=== PATIENT | male | born 1990 | race African-American/Black ===

== ENCOUNTER 2021-08-10 16:13 | Emergency (ER) | payer MEDICAID, SELFPAY ==
[2021-08-10 16:14] VITALS: BP 143/92; PULSE 89; RESP 16; TEMP 36.1; O2SAT 100; BMI 20.1
--- NOTE | 2021-08-10 17:00 | EX.ED.DYSGE1 ---
HPI History of Present Illness Chief Complaint: Abscess Informant: patient Narrative Narrative: Wound right upper inner thigh noted yesterday. More tender today. Took couple baths shower to open up started draining. No fevers. No history of similar. Alcohol history denies any recreational drug use. Denies IV drug history. History of asthma. Denies any allergies. Prior similar symptoms: No PFSH PFSH Home Medications cephalexin 500 mg PO Q6 #40 cap 08/10/21 [Rx Last Taken Unknown] sulfamethoxazole-trimethoprim [Bactrim DS] 1 tab PO Q12H #20 tab 08/10/21 [Rx Last Taken Unknown] Allergy/AdvReac Type Severity Reaction Status Date / Time No Known Allergies Allergy Verified 08/10/21 16:14 Social History Smoking Status: Current every day smoker tobacco type: cigarettes ROS ROS ED Constitutional Constitutional ED: Denies chills, fever(s) or sweats Eyes Eyes: Denies change in vision ENT ENT ED: Denies dysphagia or sore throat Cardiovascular Cardiovascular: Denies chest pain, leg edema, palpitations or racing heartbeat Respiratory/Chest Respiratory/Chest: Denies cough, dyspnea or dyspnea on exertion Gastrointestinal Gastrointestinal: Denies abdominal pain, diarrhea, nausea or vomiting Genitourinary Genitourinary ED: Denies dysuria, hematuria or urinary frequency Musculoskeletal Musculoskeletal: Denies back pain, extremity pain or neck pain Integumentary Reports abscess; Denies rash or wounds Neurologic Neurologic: Denies headache(s), paresthesias or weakness EXAM Physical Exam Const Vital Signs: 08/10/21 16:14 Temperature 97.0 F L Temperature Source Temporal Pulse Rate 89 Respiratory Rate 16 Blood Pressure 143/92 H Blood Pressure Mean 109 Pulse Ox 100 Oxygen Delivery Method Room Air Positive well nourished and well developed General Appearance ED: well developed and NAD HEENT Reports moist mucous membranes normocephalic and atraumatic Eyes PERRL, EOMs intact bilaterally and conjunctivae normal General Eye ED: Yes normal appearance of both eyes Neck no lymphadenopathy and supple General: Negative for tenderness Chest Wall Chest: Negative for tenderness Resp normal respiratory effort and normal air movement Effort and Inspection: symmetric chest movement; Negative for respiratory distress Cardio regular rate, regular rhythm and no murmurs Peripheral Pulses: pulses 2+ throughout GI normal to inspection, nondistended, normoactive bowel sounds and non-tender Palpation: Negative for guarding or rebound tenderness present Back/Spine no CVA tenderness and no thoracic nor lumbar tenderness Extremity normal to inspection General Extremety ED: Negative for edema or tenderness General Extremity: Negative for edema Neuro oriented x3 and no sensory deficits noted Sensorium / Orientation: awake and alert Skin Skin Narrative: Right thigh: Upper medial thigh noted 4 cm x 2 cm induration fluctuance there was a head with some exudative drainage. Tender palpation. Darker skin pigmentation therefore difficult to evaluate for erythema. There is no induration into the scrotum or rectum. MDM MDM MDM Narrative Medical decision making narrative: Patient has an abscess right upper thigh starting to drain. However appears to have large fluctuance and much more to drain now I discussed with him for incision and drainage for definitive treatment. He agrees. Performed without difficulties, wound culture was sent. He started of Bactrim and Keflex. Follow-up was given. Tylenol Motrin as needed. Return precautions discussed. Procedure note: Verbal consent. Normal sterile conditions. Betadine prep of the skin, 5 cc 1% lidocaine without epinephrine was used for local analgesia. Betadine prepped again, 11 blade stab incision copious exudates, cultures collected. Additional extension of the wound with cruciate incisions, loculations broken with hemostats. Total of 250 cc normal saline for flushing. Dressing placed by nursing. Patient tolerate procedure well. Discharge Plan Triage Chief Complaint: Abscess ED Provider: Chris Schneider Dx/Rx/DC Orders Clinical Impression: Abscess of right thigh, Status post incision and drainage Instructions: ED Abscess Incision And Drainage Prescriptions: New sulfamethoxazole-trimethoprim [Bactrim DS] 800-160 mg tablet 1 tab PO Q12H Qty: 20 RF: 0 cephalexin [cephalexin] 500 MG capsule 500 mg PO Q6 Qty: 40 RF: 0 Primary Care Provider: NOT,DEFINED Referrals: Radha Jones [NON-STAFF] - 1 Week NOT,DEFINED [Primary Care Provider] - Activity Restrictions/Additional Instructions: Status post incision and drainage. Wound culture sent and pending. Take antibiotic as prescribed. Follow-up as an outpatient return if any worsening symptoms. Disposition Disposition: Home, Self Care
[2021-08-10] MEDS: Cephalexin 250 MG Capsule 500 MG PO (17:28)
[2021-08-10] MEDS: Smz/Tmp Ds Tablet 1 TABLET PO (17:28)
[2021-08-10 17:30] VITALS: BP 132/72; PULSE 83; RESP 16; O2SAT 98
== END 2021-08-10 17:33 | disposition home or self-care (01) ==
LOC: ED 17:32
PROVIDERS: Emergency Provider Emergency Medicine; Visit Provider Emergency Medicine
DX: L02.415 Cutaneous abscess of right lower limb (principal); F17.210 Nicotine dependence, cigarettes, uncomplicated
CPT/HCPCS: 10060; 87070; 87205; 99284

== ENCOUNTER 2021-09-09 12:20 | Emergency (ER) | payer MEDICAID, SELFPAY ==
[2021-09-09 12:21] VITALS: BP 128/74; PULSE 108; RESP 16; TEMP 36.7; O2SAT 98; BMI 19.3
--- NOTE | 2021-09-09 12:48 | EX.ED.DYSGE1 ---
HPI History of Present Illness Chief Complaint: Fever Informant: patient Narrative Narrative: 31-year-old male presenting to the emergency department for rectal pain. Patient states that since Thursday he has been experiencing rectal bleeding and significant pain. He feels like something is protruding from his anus. Family also notes that he seemed to have a fever over the past 4 days and body aches but that has resolved and he had been checked for COVID and flu were negative. Patient states the true reason for his visit is the rectal pain. He notes that he does strain frequently for bowel movements and is usually on the commode for an extended period of time PFSH PFS Home Medications cephalexin 500 mg PO Q6 #40 cap 08/10/21 [Rx Last Taken Unknown] sulfamethoxazole-trimethoprim [Bactrim DS] 1 tab PO Q12H #20 tab 08/10/21 [Rx Last Taken Unknown] docusate sodium [Colace] 100 mg PO BID #60 cap 09/09/21 [Rx Last Taken Unknown] hydrocortisone [Anusol-HC] 1 applic DC BID #30 g 09/09/21 [Rx Last Taken Unknown] lidocaine 1 applic TOPICAL BID PRN #30 g 09/09/21 [Rx Last Taken Unknown] Allergy/AdvReac Type Severity Reaction Status Date / Time No Known Allergies Allergy Verified 09/09/21 12:21 Social History Smoking Status: Current every day smoker tobacco type: cigarettes ROS ROS ED Constitutional Constitutional ED: Reports fever(s); Denies chills or weight loss Eyes Eyes: Denies change in vision or diplopia ENT ENT ED: Denies ear pain, rhinorrhea or sore throat Cardiovascular Cardiovascular: Denies chest pain, orthopnea, palpitations or racing heartbeat Respiratory/Chest Respiratory/Chest: Denies cough, dyspnea or orthopnea Gastrointestinal Gastrointestinal: Reports other Details: Rectal pain ; Denies abdominal pain, diarrhea, nausea or vomiting Genitourinary Genitourinary ED: Denies dysuria, hematuria or urinary frequency Musculoskeletal Musculoskeletal: Reports myalgias; Denies arthralgias Integumentary Denies abscess or rash Neurologic Neurologic: Denies headache(s) or weakness Psychiatric Psychiatric: Denies anxiety, depression, suicidal ideation or suicidal thoughts Endocrine Endocrinology: Denies polydipsia, polyphagia or polyuria Allergic/Immunologic Allergic/Immunologic ED: Denies mouth swelling, tongue swelling or urticaria EXAM Physical Exam Const Vital Signs: 09/09/21 12:21 09/09/21 12:37 Temperature 98.1 F Temperature Source Temporal Pulse Rate 108 H Respiratory Rate 16 Respiratory Effort Normal Non-Labored Blood Pressure 128/74 H Blood Pressure Mean 92 Pulse Ox 98 Oxygen Delivery Method Room Air Positive well nourished and well developed General Appearance ED: well developed HEENT Reports normocephalic, head/scalp atraumatic, TM's clear and moist mucous membranes Negative for trauma Tympanic Membrane ED: Yes TM's clear Eyes PERRL and EOMs intact bilaterally Neck no lymphadenopathy, supple and no JVD Resp normal respiratory effort and clear to auscultation bilaterally Cardio regular rate, regular rhythm and no murmurs GI normal to inspection, nondistended, normoactive bowel sounds and non-tender Palpation: soft Narrative: Rectal examination shows several inflamed external hemorrhoids. These are still pink and do not appear thrombosed. I do not see any rectal prolapse. Back/Spine no CVA tenderness and normal ROM Extremity normal to inspection General Extremety ED: Negative for edema General Extremity: Negative for edema Neuro oriented x3 and CN's II-XII intact bilaterally Sensorium / Orientation: alert Motor Exam: strength 5/5 throughout Psych mental status grossly normal Mood & Affect: Negative for depressed or tearful Skin no rashes or lesions noted and no wounds MDM MDM MDM Narrative Medical decision making narrative: Patient was started on twice daily stool softener. I will write for lidocaine jelly and Anusol HC. As these are nonthrombosed I do not think he needs incision and drainage today. I do think he would benefit from surgical consultation for possible definitive management of these hemorrhoids. Patient was advised not to take his phone or magazines into the bathroom with him. He was advised on sitz bath. Discharge Plan Triage Chief Complaint: Fever ED Provider: Tim Valdez Dx/Rx/DC Orders Clinical Impression: External hemorrhoid, bleeding, Pain, rectal Instructions: Understanding Hemorrhoids Prescriptions: New docusate sodium [Colace] 100 mg capsule 100 mg PO BID Qty: 60 RF: 0 hydrocortisone [Anusol-HC] 2.5 % cream with perineal applicator 1 applic DC BID Qty: 30 RF: 0 lidocaine 4 % cream 1 applic topical BID PRN (Reason: pain) Qty: 30 RF: 0 No Action sulfamethoxazole-trimethoprim [Bactrim DS] 800-160 mg tablet 1 tab PO Q12H Qty: 20 RF: 0 cephalexin [cephalexin] 500 MG capsule 500 mg PO Q6 Qty: 40 RF: 0 Primary Care Provider: Care Physician,No Primary Referrals: Carloz Wells MD [STAFF PHYSICIAN] - As soon as possible (for surgical evaluation) Care Physician,No Primary [Primary Care Provider] - Disposition Disposition: Home, Self Care
[2021-09-09 13:20] VITALS: PULSE 95; RESP 16; O2SAT 98
== END 2021-09-09 13:21 | disposition home or self-care (01) ==
PROVIDERS: Emergency Provider Emergency Medicine; Visit Provider Emergency Medicine
DX: K62.5 Hemorrhage of anus and rectum (principal); K64.4 Residual hemorrhoidal skin tags; F17.210 Nicotine dependence, cigarettes, uncomplicated; R50.9 Fever, unspecified
CPT/HCPCS: 99283